=== PATIENT | female | born 1950 | race Caucasian/White ===

== ENCOUNTER 2019-07-18 11:12 | Outpatient (CLI) | payer BC, MEDICARE, SELFPAY ==
--- NOTE | 2019-07-18 | XR_ITS ---
WS: [id number] LEFT ANKLE: 2 VIEW(S) TECHNIQUE: AP and lateral. Radiographs obtained both standing and supine. HISTORY: BILATERAL ANKLE PAIN COMPARISON: 01/11/2018 Ankle mortise is similar to the prior examination. Mild asymmetry which is similar to prior studies. Talus remains tilted slightly, lateral talus is inferior with respect to the medial talus. No disloca tion. No joint effusion or fracture. No significant degenerative changes at the joint spaces. No soft tissue abnormality. XR/XR ankle LT min 3V* [id number] IMPRESSION: 1. Minimal asymmetry of the ankle mortise. Similar to the prior radiographs fr 2018. 2. No fracture or dislocation.
--- NOTE | 2019-07-18 11:22 | XR_ITS ---
WS: [id number] RIGHT ANKLE: 2 VIEW(S) TECHNIQUE: AP and lateral. Upright AP and lateral and supine AP and lateral. HISTORY: BILATERAL ANKLE PAIN COMPARISON: None available. Very slight asymmetry of the ankle mortise is similar during sitting and standing. Lateral ankle mort ise is slightly greater than the medial. Mild degenerative changes at the medial malleolus. No displa cement or subluxation. Soft tissues are normal. XR/XR ankle RT min 3V* [id number] IMPRESSION: Minimal asymmetry of the ankle mortise. Ankle mortise is slightly greater later ally.
== END 2019-07-18 11:13 | disposition home or self-care (01) ==
LOC: RAD 11:18
PROVIDERS: Family Provider Family Medicine; PCP Family Medicine; Referring Provider Family Medicine; Visit Provider Emergency Medicine
DX: M25.572 Pain in left ankle and joints of left foot (principal); M25.571 Pain in right ankle and joints of right foot
CPT/HCPCS: 73610

== ENCOUNTER 2019-08-24 08:18 | Outpatient (CLI) | payer BC, MEDICARE, SELFPAY ==
--- NOTE | 2019-08-24 | US_ITS ---
WS: [id number] RENAL ULTRASOUND WITH DOPPLER INTERROGATION OF THE RENAL ARTERIES HISTORY: HYPERTENSION, ACCELERATED COMPARISON: None available. LEFT kidney measures 9.7 cm in length and the RIGHT kidney measures 9.6 cm in length. No cortical thi nning or hydronephrosis. Doppler evaluation of the renal arteries demonstrates no significant elevation of velocity. Renal art bria to aorta ratios are normal. US/ROR renal doppler IMPRESSION: No renal artery stenosis.
== END 2019-08-24 08:19 | disposition home or self-care (01) ==
PROVIDERS: Family Provider Family Medicine; PCP Family Medicine; Visit Provider Family Medicine
DX: Z76.89 Persons encountering health services in other specified circumstances (principal)

== ENCOUNTER → 2021-02-12 11:11 | Outpatient (BNVA) | payer OTHER, MEDICARE, SELFPAY | PROVIDERS: Family Provider Family Medicine; PCP Family Medicine; Visit Provider Podiatrist Foot & Ankle Surgery | DX: M25.572 Pain in left ankle and joints of left foot (principal); M21.42 Flat foot [pes planus] (acquired), left foot; M21.41 Flat foot [pes planus] (acquired), right foot | CPT/HCPCS: 73630 ==